=== PATIENT | female | born 1980 | race Caucasian/White ===

== ENCOUNTER 2016-11-17 07:09 | Outpatient (CLI) | payer BC ==
[2016-11-17 07:42] LABS: ALT (SGPT) 20 U/L (8-55); AST (SGOT) 20 U/L (5-34); Albumin 3.9 g/dL (3.5-5.0); Alkaline Phosphatase 54 U/L (40-150); Anion Gap 15 mmol/L (10-20); BUN (Urea Nitrogen) 8 mg/dL (7.0-18.7); Bilirubin, Total 0.5 mg/dL (0.2-1.2); Calc. Creatinine Clearance 0 mL/min (70-130); Calcium 9.1 mg/dL (7.8-10.44); Carbon Dioxide 21 mmol/L (22-29); Chloride 108 mmol/L (98-107); Estimated GFR-MDRD 88; Globulin 3.2 g/dL (2.4-3.5); Glucose 86 mg/dL (70-105); Potassium 4.3 mmol/L (3.5-5.1); Protein, Total 7.1 g/dL (6.0-8.3); Sodium 140 mmol/L (136-145)
[2016-11-17 07:52] LABS: Hemoglobin A1c 5.2 % (4.0-6.0)
[2016-11-17 08:10] LABS: Free T4 (Free Thyroxine) 1.15 ng/dL (0.70-1.48); Thyroid Stimulating Hormone 1.6766 uIU/mL (0.35-4.94); Vitamin D, 25 Hydroxy 38.9 ng/ml (> 30.0)
[2016-11-17 17:59] LABS: Insulin 14.5 uU/mL (3.0-25.0)
== END 2016-11-17 07:10 | disposition home or self-care (01) ==
LOC: BURLAB 07:09
PROVIDERS: ATTEND Internal Medicine Endocrinology, Diabetes & Metabolism
DX: E03.9 Hypothyroidism, unspecified (principal); E55.9 Vitamin D deficiency, unspecified; E66.3 Overweight; R53.81 Other malaise
CPT/HCPCS: 36415; 80053; 82306; 83036; 83525; 84439; 84443; 84481